=== PATIENT | female | born 1990 | race American Indian/Alaskan Native ===

== ENCOUNTER 2020-04-29 09:43 | Inpatient (IN) | payer MEDICAID ==
[2020-04-29] MEDS ORDERED: Sodium Chloride 0.9% 10 ML Syringe FLUSH PRN (13:22)
[2020-04-29] MEDS ORDERED: Methylergonovine 0.2 MG/1 ML Amp IM PRN (13:22)
[2020-04-29] MEDS ORDERED: Sodium Chloride 0.9% 2.5 ML Syringe FLUSH PRN (13:22)
[2020-04-29] MEDS ORDERED: Sodium Chloride 0.9% 10 ML SDV IV PRN (13:22)
[2020-04-29] MEDS ORDERED: Tranexamic Acid 1,000 MG in Sodium Chloride 0.9% 100 ML IV PRN (13:22)
[2020-04-29] MEDS ORDERED: Misoprostol 200 MCG Tab PO PRN (13:22)
[2020-04-29] MEDS ORDERED: Water For Irrigation,Sterile 1,000 ML Container IRR PRN (13:22)
[2020-04-29] MEDS ORDERED: Nalbuphine 10 MG/1 ML Vial IVPUSH PRN (13:22)
[2020-04-29] MEDS ORDERED: Carboprost Tromethamine 250 MCG/1 ML Amp IM PRN (13:22)
[2020-04-29] MEDS ORDERED: Lidocaine 1% 50 ML MDV INJECT PRN (13:22)
[2020-04-29] MEDS ORDERED: Butorphanol 1 MG/ML SDV IVPUSH PRN (13:22)
[2020-04-29] MEDS ORDERED: Oxytocin/0.9 % Sodium Chloride 30 UNIT/500 ML BAG IV SCH ×2 (13:30→20:30)
--- NOTE | 2020-04-29 16:12 | PCM.LDHP ---
L&D History of Present Illness - General Date of Service: 04/29/20 Admit Problem/Dx: Patient Status Order with Admit Dx/Problem 04/29/20 11:20 Patient Status [ADT] Routine 04/29/20 13:22 Patient Status [ADT] Routine Admission Diagnosis/Problem Admission Diagnosis/Problem Source of Information: Patient History Limitations: Reports: No Limitations - History of Present Illness Improves with: Reports: None Worsens with: Reports: None Associated Symptoms: Reports: N - Related Data Allergies/Adverse Reactions: Allergies Allergy/AdvReac Type Severity Reaction Status Date / Time No Known Allergies Allergy Verified 04/29/20 11:19 Home Medications: Home Meds Vit #76/Iron,Carb/Fa [Pnv 29-1 Tablet] 1 tab PO DAILY 04/29/20 [History] Past Medical History HEENT History: Reports: None Cardiovascular History: Reports: None Respiratory History: Reports: None Gastrointestinal History: Reports: None Genitourinary History: Reports: None 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: Musculoskeletal History: Reports: Fracture Neurological History: Reports: None Psychiatric History: Reports: Anxiety Endocrine/Metabolic History: Reports: None Hematologic History: Reports: None Immunologic History: Reports: None Oncologic (Cancer) History: Reports: None Dermatologic History: Reports: None - Infectious Disease History Infectious Disease History: Reports: Chicken Pox - Past Surgical History HEENT Surgical History: Reports: None Female Surgical History: Reports: None Social & Family History - Family History HEENT: Reports: None Cardiac: Reports: CAD, [place] Respiratory: Reports: COPD OBGYN: Reports: Psychiatric: Reports: None Endocrine/Metabolic: Reports: Diabetes, type II Hematologic: Reports: None Immunologic: Reports: None Dermatologic: Reports: None Oncologic: Reports: None - Tobacco Use Tobacco Use Status *Q: Never Tobacco User Second Hand Smoke Exposure: Yes - Caffeine Use Caffeine Use: Reports: Soda - Recreational Drug Use Recreational Drug Use: No H&P Review of Systems - Review of Systems: Review Of Systems: See Below General: Reports: No Symptoms HEENT: Reports: No Symptoms Pulmonary: Reports: No Symptoms Cardiovascular: Reports: No Symptoms Gastrointestinal: Reports: No Symptoms Genitourinary: Reports: No Symptoms Musculoskeletal: Reports: No Symptoms Skin: Reports: No Symptoms Psychiatric: Reports: No Symptoms Neurological: Reports: No Symptoms Hematologic/Lymphatic: Reports: No Symptoms Immunologic: Reports: No Symptoms L&D Exam - Exam Exam: See Below - Vital Signs Weight: 65.317 kg - OB Specific Contraction Intensity: Moderate Movement: Active Heart Tones: Present Presentation: Vertex - Tucker Score Tucker Score Cervix Position: Midposition Tucker Score Consistency: Soft Tucker Score Dilation: 3-4 cm Tucker Score 's Station: -1 ,0 - Exam General: Alert, Oriented HEENT: PERRLA, Conjunctiva Clear, EACs Clear, EOMI, Hearing Intact, Mucosa Moist & [place], Nares Patent, Normal Nasal Septum, Posterior Pharynx Clear, TMs Clear Neck: Supple, Trachea Midline Lungs: Clear to Auscultation, Normal Respiratory Effort Cardiovascular: Regular Rate, Regular Rhythm GI/Abdominal Exam: Normal Bowel Sounds, Soft, Non-Tender, No Organomegaly, No Distention, No Abnormal Bruit, No Mass, Pelvis Stable Rectal Exam: Normal Exam, Normal Rectal Tone Genitourinary: Normal external exam, Normal bimanual exam, Normal speculum exam Back Exam: Normal Inspection, Full Range of Motion Extremities: Normal Inspection, Normal Range of Motion, Non-Tender, No Pedal Edema, Normal Capillary Refill Skin: Warm, Dry, Intact Neurological: Cranial Nerves Intact, Reflexes Equal Bilateral Psychiatric: Alert, Normal Affect, Normal Mood - Patient Data Lab Results Last 24 hrs: Laboratory Results - last 24 hr 04/29/20 04/29/20 04/29/20 Range/Units 13:05 13:05 13:10 WBC 10.52 (4.0-11.0) K/uL RBC 4.01 L (4.30-5.90) M/uL Hgb 11.8 L (12.0-16.0) g/dL Hct 36.3 (36.0-46.0) % MCV 90.5 (80.0-98.0) fL MCH 29.4 (27.0-32.0) pg MCHC 32.5 (31.0-37.0) g/dL RDW Std Deviation 43.8 (28.0-62.0) fl RDW Coeff of Camila 13 (11.0-15.0) % Plt Count 252 (150-400) K/uL MPV 11.30 (7.40-12.00) fL Nucleated RBC % 0.0 /100WBC Nucleated RBCs # 0 K/uL SARS-CoV-2 RNA (HUMBERTO) NEGATIVE (NEGATIVE) Blood Type O POSITIVE Antibody Screen NEGATIVE Result Diagrams: 04/29/20 13:05 Problem List Initiated/Reviewed/Updated: Yes Orders Last 24hrs: Active Orders 24 hr Category Date Time Status Patient Status [ADT] Routine ADT 04/29/20 13:22 Active Heart Tones [RC] CONTINUOUS Care 04/29/20 13:22 Active Non Stress Test [RC] PER UNIT ROUTINE Care 04/29/20 11:20 Active May Shower [RC] ASDIRECTED Care 04/29/20 13:22 Active Notify Provider [RC] PRN Care 04/29/20 13:22 Active Up ad Lori [RC] ASDIRECTED Care 04/29/20 11:20 Active Up ad Lori [RC] ASDIRECTED Care 04/29/20 13:22 Active Vaginal Exam [RC] Click to Edit Care 04/29/20 11:20 Active Vaginal Exam [RC] PRN Care 04/29/20 13:22 Active Vital Signs [RC] PER UNIT ROUTINE Care 04/29/20 11:20 Active Vital Signs [RC] PER UNIT ROUTINE Care 04/29/20 13:22 Active Regular Diet [DIET] Diet 04/29/20 Lunch Active RPR (SYPHILIS SERO) W/ RFLX [REF] Routine Lab 04/29/20 13:05 Received Butorphanol [Stadol] Med 04/29/20 13:22 Active 1 mg IVPUSH Q1H PRN Carboprost Tromethamine [Hemabate DS] Med 04/29/20 13:22 Active 250 mcg IM ASDIRECTED PRN Lactated Ringers [Ringers, Lactated] 1,000 ml Med 04/29/20 13:30 Active IV ASDIRECTED Lidocaine 1% [Xylocaine 1%] Med 04/29/20 13:22 Active 50 ml INJECT ONETIME PRN Methylergonovine [Methergine] Med 04/29/20 13:22 Active 0.2 mg IM ASDIRECTED PRN Nalbuphine [Nubain] Med 04/29/20 13:22 Active 10 mg IVPUSH Q1H PRN Oxytocin/0.9 % Sodium Chloride [Oxytocin 30 Unit/500 ML Med 04/29/20 13:30 Active -NS] 30 unit in 500 ml IV TITRATE Sodium Chloride 0.9% [Normal Saline] Med 04/29/20 13:22 Active 10 ml IV ASDIRECTED PRN Sodium Chloride 0.9% [Saline Flush] Med 04/29/20 13:22 Active 10 ml FLUSH ASDIRECTED PRN Sodium Chloride 0.9% [Saline Flush] Med 04/29/20 13:22 Active 2.5 ml FLUSH ASDIRECTED PRN Tranexamic Acid [Cyklokapron] 1,000 mg Med 04/29/20 13:22 Active Sodium Chloride 0.9% [Normal Saline] 100 ml IV ONETIME Water For Irrigation,Sterile [Sterile Water for Med 04/29/20 13:22 Active Irrigation] 1,000 ml IRR ASDIRECTED PRN miSOPROStoL [Cytotec] Med 04/29/20 13:22 Active 200 mcg PO ONETIME PRN Scalp Electrode [WOMSER] Per Unit Routine Oth 04/29/20 13:22 Ordered Peripheral IV Insertion Adult [OM.PC] Routine Oth 04/29/20 13:22 Ordered Resuscitation Status Routine Resus Stat 04/29/20 11:20 Ordered Medication Orders Butorphanol Tartrate (Stadol) 1 mg IVPUSH Q1H PRN PRN Reason: Pain Carboprost Tromethamine (Hemabate Ds) 250 mcg IM ASDIRECTED PRN PRN Reason: Post Hemorrhage Lactated Ringer's (Ringers, Lactated) 1,000 mls @ 150 mls/hr IV ASDIRECTED DANNA Oxytocin/Sodium Chloride (Oxytocin 30 Unit/500 Ml-Ns) 30 unit in 500 mls @ 500 mls/hr IV TITRATE DANNA Tranexamic Acid 1,000 mg/ (Sodium Chloride) 110 mls @ 660 mls/hr IV ONETIME PRN PRN Reason: Bleeding Lidocaine HCl (Xylocaine 1%) 50 ml INJECT ONETIME PRN PRN Reason: Laceration repair Methylergonovine Maleate (Methergine) 0.2 mg IM ASDIRECTED PRN PRN Reason: Post Hemorrhage Misoprostol (Cytotec) 200 mcg PO ONETIME PRN PRN Reason: Post Hemorrhage Nalbuphine HCl (Nubain) 10 mg IVPUSH Q1H PRN PRN Reason: Pain (severe 7-10) Sodium Chloride (Saline Flush) 10 ml FLUSH ASDIRECTED PRN PRN Reason: Keep Vein Open Sodium Chloride (Saline Flush) 2.5 ml FLUSH ASDIRECTED PRN PRN Reason: Keep Vein Open Sodium Chloride (Normal Saline) 10 ml IV ASDIRECTED PRN PRN Reason: IV Use Sterile Water (Sterile Water For Irrigation) 1,000 ml IRR ASDIRECTED PRN PRN Reason: delivery Assessment/Plan Comment:: 29 years old patient nulliparous she is to try on [place] our area she have a complete care in [facility]. Reviewed her records her records is adequate her GBS status is negative. Patient in nearly active labor. We would admit her anticipating normal spontaneous vaginal delivery
[2020-04-29] MEDS: Lactated Ringers 1,000 ML IV SCH ×3 (16:50→20:04)
[2020-04-29] MEDS ORDERED: Bupivicaine/fentaNYL/NS 250 ML ONE (17:03)
[2020-04-29] MEDS ORDERED: Ondansetron 4 MG/2 ML SDV IVPUSH PRN (17:46)
--- NOTE | 2020-04-29 17:51 | PCM.PREANE ---
Preanesthetic Assessment - Anesthesia/Transfusion/Family Hx Anesthesia History: No Prior Anesthesia Family History of Anesthesia Reaction: No Transfusion History: No Prior Transfusion(s) - Review of Systems General: No Symptoms Pulmonary: No Symptoms Cardiovascular: No Symptoms Gastrointestinal: No Symptoms Neurological: No Symptoms Other: Reports: None (Denies any personal or family hx of bleeding or clotting problems) - Physical Assessment Height: 1.7 m Weight: 65.317 kg ASA Class: 2 Mental Status: Alert & Oriented x3 Airway Class: Mallampati = 2 Dentition: Reports: Normal Dentition ROM/Head Extension: Full - Lab Values: Laboratory Last Values WBC 10.52 K/uL (4.0-11.0) 04/29/20 13:05 RBC 4.01 M/uL (4.30-5.90) L 04/29/20 13:05 Hgb 11.8 g/dL (12.0-16.0) L 04/29/20 13:05 Hct 36.3 % (36.0-46.0) 04/29/20 13:05 MCV 90.5 fL (80.0-98.0) 04/29/20 13:05 MCH 29.4 pg (27.0-32.0) 04/29/20 13:05 MCHC 32.5 g/dL (31.0-37.0) 04/29/20 13:05 RDW Std Deviation 43.8 fl (28.0-62.0) 04/29/20 13:05 RDW Coeff of Camila 13 % (11.0-15.0) 04/29/20 13:05 Plt Count 252 K/uL (150-400) 04/29/20 13:05 MPV 11.30 fL (7.40-12.00) 04/29/20 13:05 Nucleated RBC % 0.0 /100WBC 04/29/20 13:05 Nucleated RBCs # 0 K/uL 04/29/20 13:05 SARS-CoV-2 RNA (HUMBERTO) NEGATIVE (NEGATIVE) 04/29/20 13:10 Blood Type O POSITIVE 04/29/20 13:05 Antibody Screen NEGATIVE 04/29/20 13:05 - Allergies Allergies/Adverse Reactions: Allergies Allergy/AdvReac Type Severity Reaction Status Date / Time No Known Allergies Allergy Verified 04/29/20 11:19 - Acknowledgements Anesthesia Type Planned: Epidural Pt an Appropriate Candidate for the Planned Anesthesia: Yes Alternatives and Risks of Anesthesia Discussed w Pt/Guardian: Yes Pt/Guardian Understands and Agrees with Anesthesia Plan: Yes PreAnesthesia Questionnaire HEENT History: Reports: None Cardiovascular History: Reports: None Respiratory History: Reports: None Gastrointestinal History: Reports: None Genitourinary History: Reports: None 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: Musculoskeletal History: Reports: Fracture Neurological History: Reports: None Psychiatric History: Reports: Anxiety Endocrine/Metabolic History: Reports: None Hematologic History: Reports: None Immunologic History: Reports: None Oncologic (Cancer) History: Reports: None Dermatologic History: Reports: None - Infectious Disease History Infectious Disease History: Reports: Chicken Pox - Past Surgical History HEENT Surgical History: Reports: None Female Surgical History: Reports: None - SUBSTANCE USE Tobacco Use Status *Q: Never Tobacco User Second Hand Smoke Exposure: Yes Recreational Drug Use History: No - HOME MEDS Home Medications: Home Meds Vit #76/Iron,Carb/Fa [Pnv 29-1 Tablet] 1 tab PO DAILY 04/29/20 [History] - CURRENT (IN HOUSE) MEDS Current Meds: Current Medications Butorphanol Tartrate (Stadol) 1 mg IVPUSH Q1H PRN PRN Reason: Pain Carboprost Tromethamine (Hemabate Ds) 250 mcg IM ASDIRECTED PRN PRN Reason: Post Hemorrhage Lactated Ringer's (Ringers, Lactated) 1,000 mls @ 150 mls/hr IV ASDIRECTED [facility] Last Admin: 04/29/20 16:50 Dose: 999 mls/hr Documented by: Oxytocin/Sodium Chloride (Oxytocin 30 Unit/500 Ml-Ns) 30 unit in 500 mls @ 500 mls/hr IV TITRATE [facility] Tranexamic Acid 1,000 mg/ (Sodium Chloride) 110 mls @ 660 mls/hr IV ONETIME PRN PRN Reason: Bleeding Lidocaine HCl (Xylocaine 1%) 50 ml INJECT ONETIME PRN PRN Reason: Laceration repair Methylergonovine Maleate (Methergine) 0.2 mg IM ASDIRECTED PRN PRN Reason: Post Hemorrhage Misoprostol (Cytotec) 200 mcg PO ONETIME PRN PRN Reason: Post Hemorrhage Nalbuphine HCl (Nubain) 10 mg IVPUSH Q1H PRN PRN Reason: Pain (severe 7-10) Ondansetron HCl (Zofran) 4 mg IVPUSH Q4H PRN PRN Reason: Nausea Sodium Chloride (Saline Flush) 10 ml FLUSH ASDIRECTED PRN PRN Reason: Keep Vein Open Sodium Chloride (Saline Flush) 2.5 ml FLUSH ASDIRECTED PRN PRN Reason: Keep Vein Open Sodium Chloride (Normal Saline) 10 ml IV ASDIRECTED PRN PRN Reason: IV Use Sterile Water (Sterile Water For Irrigation) 1,000 ml IRR ASDIRECTED PRN PRN Reason: delivery Discontinued Medications Fentanyl/Bupivacaine HCl (Fentanyl/Bupivacaine/Ns 2 Mcg-0.125% 250 Ml) Confirm Administered Dose 250 mls @ as directed .ROUTE .[facility] ONE Stop: 04/29/20 17:04
[2020-04-30] MEDS ORDERED: Acetaminophen 500 MG Tab PO PRN (01:13)
[2020-04-30] MEDS ORDERED: Benzocaine/Menthol 20%-0.5% Spray 78 GM Cannister TOP PRN (01:13)
[2020-04-30] MEDS ORDERED: Ibuprofen 400 MG Tab PO PRN (01:13)
[2020-04-30] MEDS ORDERED: Lanolin 100% Cream 7 GM Tube TOP PRN (01:13)
[2020-04-30] MEDS ORDERED: Witch Hazel Medicated Pads 40/Jar TOP PRN (01:13)
[2020-04-30] MEDS ORDERED: Bisacodyl 10 MG Supp RECTAL PRN (01:13)
[2020-04-30] MEDS ORDERED: oxyCODONE 5 MG Tab PO PRN (01:13)
[2020-04-30] MEDS ORDERED: Ibuprofen 800 MG Tab PO PRN (01:13)
[2020-04-30] MEDS ORDERED: Docusate Sodium 100 MG Cap PO PRN (01:13)
--- NOTE | 2020-04-30 07:04 | OR ---
SURGEON: Juan Manuel Martínez MD DATE OF PROCEDURE: 04/30/2020 PRIMARY SURGEON: Juan Manuel Martínez MD DELIVERY NOTE: Ms. Antoine is 29 and primigravida. She is transient in our area. She had complete care in the [facility]. She came here and presented to Labor and Delivery in active labor. At the time of admission, she was 4 cm, 90, vertex, and -1 station. Her record was with her, and I reviewed her record, and it was adequate. Her GBS status was negative. The patient was admitted to Labor and Delivery. She continued to progress at 5 cm. She had epidural anesthesia for labor analgesia, and at 6 p.m., she had an artificial rupture of the membrane by me with clear fluid. The patient continued to make progress of labor on her own, and then, eventually, she became complete, complete, and she started pushing, and after she pushed for 49 minutes, she was able to accomplish a normal spontaneous vaginal delivery of a male fetus, cried immediately. scores were reported to be 8 and 9. The weight is not available. The placenta delivered spontaneous, complete, and intact. There was no perineal or labial laceration. heart rate was category I through the entire process of labor. ESTIMATED BLOOD LOSS: 350 to 400 mL. COMPLICATION: There was no complication in the labor and the delivery process of this patient. ROMULO / CORNELIUS /[id number]
--- NOTE | 2020-04-30 07:35 | PCM48HPAN ---
Post Anesthesia Note - EVALUATION WITHIN 48HRS OF ANESTHETIC Vital Signs in Normal Range: Yes Patient Participated in Evaluation: Yes Respiratory Function Stable: Yes Airway Patent: Yes Cardiovascular Function Stable: Yes Hydration Status Stable: Yes Pain Control Satisfactory: Yes Nausea and Vomiting Control Satisfactory: Yes Mental Status Recovered: Yes Vital Signs: Last Vital Signs Temp 36.4 C 04/30/20 04:29 Pulse 72 04/30/20 04:29 Resp 18 04/30/20 04:29 BP 109/63 04/30/20 04:29 Pulse Ox - COMMENTS/OBSERVATIONS Free Text/Narrative:: Denies complaints
[2020-04-30] MEDS: Acetaminophen 500 MG Tab PO PRN (11:26)
--- NOTE | 2020-05-01 10:16 | PCM.DCSUM1 ---
Discharge Summary - Hospital Course Free Text/Narrative:: 29 years old patient Primigravida who presented in nearly active labor. She had a complete care in [facility] and brought her records with her. Review of her records showed her care was adequate, and her GBS status is negative. She was admitted and administered the epidural. She progressed to fully dilated and had normal spontaneous vaginal delivery. BB 8/9 Diagnosis: Stroke: No - Discharge Data Discharge Date: 05/01/20 Discharge Disposition: Home, Self-Care 01 Condition: Good - Referral to Home Health Date of Face to Face Encounter: 05/01/20 Primary Care Physician: PCP Not In Area - Discharge Diagnosis/Problem(s) (1) Term delivered SNOMED Code(s): 20379344, [id number] ICD Code: O80 - ENCOUNTER FOR FULL-TERM UNCOMPLICATED DELIVERY Status: Acute Current Visit: Yes - Patient Instructions Diet: Regular Diet as Tolerated - Discharge Plan *PRESCRIPTION DRUG MONITORING PROGRAM REVIEWED*: Not Applicable *COPY OF PRESCRIPTION DRUG MONITORING REPORT IN PATIENT KEY: Not Applicable Home Medications: Home Meds Vit #76/Iron,Carb/Fa [Pnv 29-1 Tablet] 1 tab PO DAILY 04/29/20 [History] - Discharge Summary/Plan Comment DC Time >30 min.: Yes - General Info Date of Service: 05/01/20 Admission Dx/Problem (Free Text: Patient Status Order with Admit Dx/Problem 04/29/20 11:20 Patient Status [ADT] Routine 04/29/20 13:22 Patient Status [ADT] Routine Admission Diagnosis/Problem Admission Diagnosis/Problem Subjective Update: Patient is doing well today. Ambulating without dizziness. Eating without nausea or vomiting. Very light bleeding, no clots. Urinating and had a bowel. Feeling ready to be discharged home. Plan to stay in [place] for a while. Functional Status: Reports: Pain Controlled, Tolerating Diet, Ambulating, Urinating - Review of Systems General: Reports: No Symptoms HEENT: Reports: No Symptoms Pulmonary: Reports: No Symptoms Cardiovascular: Reports: No Symptoms Gastrointestinal: Reports: No Symptoms, Other (Intermittent pelvic cramping) Genitourinary: Reports: No Symptoms Musculoskeletal: Reports: No Symptoms Skin: Reports: No Symptoms Psychiatric: Reports: No Symptoms - Patient Data Vitals - Most Recent: Last Vital Signs Temp 97.7 F 05/01/20 04:00 Pulse 76 05/01/20 04:00 Resp 16 05/01/20 04:00 BP 129/84 05/01/20 04:00 Pulse Ox 97 05/01/20 04:00 Weight - Most Recent: 65.317 kg Lab Results - Last 24 hrs: Laboratory Results - last 24 hr 04/29/20 05/01/20 Range/Units 13:05 05:10 Hgb 10.2 L (12.0-16.0) g/dL Hct 31.4 L (36.0-46.0) % RPR Non-Reac (Non-Reac) Med Orders - Current: Current Medications Acetaminophen (Tylenol Extra Strength) 500 mg PO Q4H PRN PRN Reason: Pain Acetaminophen (Tylenol Extra Strength) 1,000 mg PO Q4H PRN PRN Reason: Pain Last Admin: 04/30/20 11:26 Dose: 1,000 mg Documented by: Benzocaine/Menthol (Dermoplast Pain Relief 20%-0.5% [place]) 78 gm TOP ASDIRECTED PRN PRN Reason: Perineal Comfort Measure Last Admin: 04/30/20 02:52 Dose: 1 canister Documented by: Bisacodyl (Dulcolax) 10 mg RECTAL ONETIME PRN PRN Reason: Constipation Butorphanol Tartrate (Stadol) 1 mg IVPUSH Q1H PRN PRN Reason: Pain Carboprost Tromethamine (Hemabate Ds) 250 mcg IM ASDIRECTED PRN PRN Reason: Post Hemorrhage Docusate Sodium (Colace) 100 mg PO BID PRN PRN Reason: Constipation Last Admin: 04/30/20 21:20 Dose: 100 mg Documented by: Emollient Ointment (Lansinoh Hpa) 0 gm TOP ASDIRECTED PRN PRN Reason: Sore Nipples Lactated Ringer's (Ringers, Lactated) 1,000 mls @ 150 mls/hr IV ASDIRECTED DANNA Last Admin: 04/29/20 20:04 Dose: 150 mls/hr Documented by: Oxytocin/Sodium Chloride (Oxytocin 30 Unit/500 Ml-Ns) 30 unit in 500 mls @ 500 mls/hr IV TITRATE DANNA Tranexamic Acid 1,000 mg/ (Sodium Chloride) 110 mls @ 660 mls/hr IV ONETIME PRN PRN Reason: Bleeding Oxytocin/Sodium Chloride (Oxytocin 30 Unit/500 Ml-Ns) 30 unit in 500 mls @ 2 mls/hr IV TITRATE DANNA; Protocol Last Admin: 04/30/20 01:47 Dose: 2 munits/min, 2 mls/hr Documented by: Ibuprofen (Motrin) 400 mg PO Q4H PRN PRN Reason: Pain Ibuprofen (Motrin) 800 mg PO Q6H PRN PRN Reason: Pain Lidocaine HCl (Xylocaine 1%) 50 ml INJECT ONETIME PRN PRN Reason: Laceration repair Methylergonovine Maleate (Methergine) 0.2 mg IM ASDIRECTED PRN PRN Reason: Post Hemorrhage Misoprostol (Cytotec) 200 mcg PO ONETIME PRN PRN Reason: Post Hemorrhage Nalbuphine HCl (Nubain) 10 mg IVPUSH Q1H PRN PRN Reason: Pain (severe 7-10) Ondansetron HCl (Zofran) 4 mg IVPUSH Q4H PRN PRN Reason: Nausea Oxycodone HCl (Oxycodone) 5 mg PO Q2H PRN PRN Reason: Pain Sodium Chloride (Saline Flush) 10 ml FLUSH ASDIRECTED PRN PRN Reason: Keep Vein Open Sodium Chloride (Saline Flush) 2.5 ml FLUSH ASDIRECTED PRN PRN Reason: Keep Vein Open Sodium Chloride (Normal Saline) 10 ml IV ASDIRECTED PRN PRN Reason: IV Use Sterile Water (Sterile Water For Irrigation) 1,000 ml IRR ASDIRECTED PRN PRN Reason: delivery Witch Lamar (Tucks) 1 pad TOP ASDIRECTED PRN PRN Reason: comfort care Last Admin: 04/30/20 02:52 Dose: 1 container Documented by: Discontinued Medications Fentanyl/Bupivacaine HCl (Fentanyl/Bupivacaine/Ns 2 Mcg-0.125% 250 Ml) Confirm Administered Dose 250 mls @ as directed .ROUTE .[facility] ONE Stop: 04/29/20 17:04 - Exam General: Reports: Alert, Oriented, No Acute Distress Neck: Reports: Supple Lungs: Reports: Normal Respiratory Effort Cardiovascular: Reports: Regular Rate GI/Abdominal Exam: Soft, Other (Female) Exam: Fundal Height (Fundal height below the umbilicus. No uterine tenderness) Extremities: Non-Tender, No Pedal Edema Skin: Reports: Warm Psy/Mental Status: Reports: Alert, Normal Affect, Normal Mood
[2020-05-01] MEDS: Acetaminophen 500 MG Tab PO PRN (10:26)
== END 2020-05-01 15:30 | disposition home or self-care (01) | DRG 807 ==
LOC: MW.OBCHECK 09:43 → MW.OB 16:05 → OBSVTOIN 04-30 01:13 → MW.OB 04-30 04:26
PROVIDERS: ADMIT Obstetrics & Gynecology; ATTEND Obstetrics & Gynecology
PROC: 10E0XZZ Delivery of Products of Conception, External Approach (ICD-10-PCS; principal; 2020-04-30)
PROC: 10907ZC Drainage of Amniotic Fluid, Therapeutic from Products of Conception, Via Natural or Artificial Opening (ICD-10-PCS; 2020-04-30)
PROC: 3E0R3BZ Introduction of Anesthetic Agent into Spinal Canal, Percutaneous Approach (ICD-10-PCS; 2020-04-30)
PROC: 00HU33Z Insertion of Infusion Device into Spinal Canal, Percutaneous Approach (ICD-10-PCS; 2020-04-30)
DX: O80 Encounter for full-term uncomplicated delivery (principal); Z37.0 Single live birth; Z3A.39 39 weeks gestation of pregnancy; Z20.828 Contact with and (suspected) exposure to other viral communicable diseases
CPT/HCPCS: 01967; 36415; 59025; 59409; 85014; 85018; 85027; 86592; 86850; 86900; 86901; A9270-GY; J2590; J3010; J7120; U0002

== ENCOUNTER 2022-08-22 19:18 | Emergency (ER) | payer BC, MEDICAID ==
[2022-08-22] MEDS ORDERED: Diphtheria,Pertussis(Acell),Tetanus Vaccine 0.5 ML Syringe IM ONE (19:30)
[2022-08-22] MEDS ORDERED: Lidocaine 1% PF 2 ML SDV INJECT ONE (19:30)
== END 2022-08-22 19:57 | disposition home or self-care (01) ==
LOC: MW.ED 19:18
DX: S91.112A Laceration without foreign body of left great toe without damage to nail, initial encounter (principal); Z23 Encounter for immunization; W20.8XXA Other cause of strike by thrown, projected or falling object, initial encounter
CPT/HCPCS: 12001; 90471; 90715; 99282-25; 99283; J3490

== ENCOUNTER 2023-12-20 09:30 | Inpatient (IN) | payer BC ==
[2023-12-20] MEDS ORDERED: Oxytocin 10 Units/1 ML SDV ONE (09:40)
[2023-12-20] MEDS: Lidocaine 1% 50 ML MDV ONE (09:45)
[2023-12-20] MEDS: Oxytocin/0.9 % Sodium Chloride 30 UNIT/500 ML BAG ONE (10:00)
[2023-12-20] MEDS ORDERED: Carboprost Tromethamine 250 MCG/1 mL Vial IM PRN (10:22)
[2023-12-20] MEDS ORDERED: Tranexamic Acid IN NACL,ISO-OS 1,000 MG in Premix Bag 1 BAG IV PRN (10:22)
[2023-12-20] MEDS ORDERED: Water For Irrigation,Sterile 1,000 ML Container IRR PRN (10:22)
[2023-12-20] MEDS ORDERED: Sodium Chloride 0.9% 2.5 ML Syringe FLUSH PRN (10:22)
[2023-12-20] MEDS ORDERED: Lidocaine 1% 50 ML MDV INJECT PRN (10:22)
[2023-12-20] MEDS ORDERED: Sodium Chloride 0.9% 10 ML Syringe FLUSH PRN (10:22)
[2023-12-20] MEDS ORDERED: Misoprostol 200 MCG Tab PO PRN (10:22)
[2023-12-20] MEDS ORDERED: Methylergonovine 0.2 MG/1 ML Amp IM PRN (10:22)
[2023-12-20] MEDS ORDERED: Sodium Chloride 0.9% 20 ML SDV IV PRN (10:22)
[2023-12-20] MEDS ORDERED: oxyCODONE 5 MG Tab PO PRN (10:24)
[2023-12-20] MEDS ORDERED: Acetaminophen 500 MG Tab PO PRN (10:24)
[2023-12-20] MEDS ORDERED: Witch Hazel Medicated Pads 40/Jar TOP PRN (10:24)
[2023-12-20] MEDS ORDERED: Benzocaine/Menthol 20%-0.5% Spray 78 GM Cannister TOP PRN (10:24)
[2023-12-20] MEDS ORDERED: Oxytocin/0.9 % Sodium Chloride 30 UNIT/500 ML BAG IV SCH (10:30)
[2023-12-20] MEDS ORDERED: Lactated Ringers 1,000 ML IV SCH (10:30)
[2023-12-20 12:15] LABS: HEMATOCRIT 34.5 % (37.0-47.0); HEMOGLOBIN 12.1 g/dL (12.0-16.0); MEAN CORPUSCULAR HEMOGLOBIN 32.4 pg (28.0-32.0); MEAN CORPUSCULAR HGB CONC 35.1 g/dL (32.0-36.0); MEAN CORPUSCULAR VOLUME 92.5 fL (83.0-99.0); MEAN PLATELET VOLUME 11.2 fL (9.4-12.3); PLATELET COUNT,PLT 233 K/uL (150-400); RED BLOOD CELL COUNT 3.73 M/uL (4.10-5.30); WHITE BLOOD CELL COUNT,WBC 15.58 K/uL (3.9-11.3)
[2023-12-20 12:17] LABS: PH,UMBILICAL ARTERIAL 7.227 (7.18-7.38); PH,UMBILICAL VENOUS 7.307 (7.25-7.45)
[2023-12-20] MEDS: Ibuprofen 800 MG Tab PO PRN (17:47)
[2023-12-20] MEDS: Docusate Sodium 100 MG Cap PO PRN (21:37)
[2023-12-20] MEDS ORDERED: Oxytocin/0.9 % Sodium Chloride 30 UNIT/500 ML BAG ONE (22:16)
[2023-12-20] MEDS ORDERED: Lidocaine 1% 50 ML MDV ONE (22:16)
[2023-12-20] MEDS: Lanolin 100% Cream 7 GM Tube TOP PRN (22:18)
[2023-12-21 05:39] LABS: HEMATOCRIT 29.9 % (37.0-47.0); HEMOGLOBIN 10.4 g/dL (12.0-16.0)
== END 2023-12-21 01:40 | disposition home or self-care (01) | DRG 560 ==
LOC: MW.OBCHECK 09:30 → MW.OB 09:46 → MW.OBCHECK 09:50 → MW.OB 09:50 → OBSVTOIN 10:24 → MW.OB 17:37
PROVIDERS: ADMIT Obstetrics & Gynecology; ATTEND Obstetrics & Gynecology
PROC: 10E0XZZ Delivery of Products of Conception, External Approach (ICD-10-PCS; principal; 2023-12-20)
PROC: 0KQM0ZZ Repair Perineum Muscle, Open Approach (ICD-10-PCS; 2023-12-20)
PROC: 3E033VJ Introduction of Other Hormone into Peripheral Vein, Percutaneous Approach (ICD-10-PCS; 2023-12-20)
DX: O77.0 Labor and delivery complicated by meconium in amniotic fluid (principal); Z37.0 Single live birth; O70.1 Second degree perineal laceration during delivery; Z3A.38 38 weeks gestation of pregnancy
CPT/HCPCS: 36415; 59025; 59409; 82803; 85014; 85018; 85027; 86592; 86850; 86900; 86901; A9270-GY; J2001; J2590